=== PATIENT | male | born 1970 | race Caucasian/White ===

== ENCOUNTER → 2018-08-25 | Outpatient (CLI) | payer BC ==
--- NOTE | 2018-08-26 15:16 | MR ---
EXAMINATION TYPE: MR lumbar spine wo/w con DATE OF EXAM: 08/25/2018 COMPARISON: HISTORY: TECHNIQUE: Multiplanar, multisequence images of the lumbar spine were acquired utilizing mL intravenous gadolini um contrast. L1-L2: Normal disc appearance without desiccation. No herniation, protrusion or disc bulging. No ca nal stenosis is present. Foramina are patent bilaterally. L2-L3: Posterior broad-based disc bulge causes slight anterior mass effect on the thecal sac, no sign ificant spinal stenosis or foraminal encroachment. L3-L4: There is facet arthropathy change causing some posterior lateral mass effect on the thecal sac . Circumferential disc bulge causes slight anterior mass effect on the thecal sac, trefoil appearance of the thecal sac is present. L4-L5: No recurrent disc herniation. No significant foraminal encroachment or spinal stenosis. L5-S1: Circumferential extension of endplate disc complex encroaches somewhat on the left-sided ludmila en. No significant spinal stenosis. No disc herniation. Patient is status post posterior lumbar fusion L4-5, there is susceptibility artifact due to patient' s hardware. Loss of disc height signal is present L4-5, intervertebral spacing block is present, endp late discogenic marrow signal change. No paraspinal masses are identified. Conus medullaris has a no rmal appearance. No abnormal enhancement following contrast administration. IMPRESSION: Degenerative disc disease and facet arthropathy as described. Postop changes.
== END | disposition home or self-care (01) ==
LOC: RADMRIMAIN 17:03
PROVIDERS: ATTEND Nurse Practitioner
DX: M51.36 Other intervertebral disc degeneration, lumbar region (principal); M46.96 Unspecified inflammatory spondylopathy, lumbar region; Z98.1 Arthrodesis status
CPT/HCPCS: 72158; A9585

== ENCOUNTER → 2018-11-05 | Outpatient (CLI) | payer BC ==
--- NOTE | 2018-11-05 14:20 | MR ---
Thoracic spine MRI HISTORY: Pain Multiplanar multisequence imaging through the thoracic spine Correlation to plain films 09/27/2015 Thoracic vertebral bodies show preserved height, alignment, and bone marrow signal. There is mild spo ndylosis with minimal endplate discogenic marrow signal change at the lower thoracic spine. Disc spac es are maintained. There is no evident spinal stenosis, disc herniation, or significant foraminal enc roachment. Thoracic cord signal is maintained. Incidental note made of fat signal intensity focus wit hin the musculature of the upper left back measuring approximately 5.1 x 1.7 x 2.7 cm. There is some facet arthropathy changes noted at the lower thoracic spine. IMPRESSION: Facet arthropathy, mild thoracic spondylosis without evidence of disc herniation or spina l stenosis. Incidental lipoma noted in the upper left back.
== END | disposition home or self-care (01) ==
LOC: RADMRIMAIN 05:54
DX: M47.814 Spondylosis without myelopathy or radiculopathy, thoracic region (principal); M46.94 Unspecified inflammatory spondylopathy, thoracic region
CPT/HCPCS: 72146

== ENCOUNTER 2019-04-24 08:13 | Day surgery (SDC) | payer BC ==
[2019-04-22 14:59] VITALS: BMI 29.7
[~2019-04-24 08:13] MED LIST: LACTATED RINGERS 1,000 ML IV SCH
[2019-04-24 08:42] VITALS: TEMP 97.8
[2019-04-24] MEDS ORDERED: LIDOCAINE 1% 20 ML VIAL (10MG/ML) FOR IV START INTRADERMA ONE (08:45)
[2019-04-24] MEDS ORDERED: LIDOCAINE 1% INJ 10MG/ML (20 ML MDV) ONE (09:42)
[2019-04-24] MEDS ORDERED: PROPOFOL 10 MG/ML 20 ML VIAL IV ONE (09:42)
--- NOTE | 2019-04-24 10:00 | P.PCN ---
Date of Procedure: 04/24/19 Procedure(s) Performed: BRIEF HISTORY: Patient is a 48-year-old pleasant male scheduled for an elective colonoscopy as a part of screening for colorectal neoplasia. PROCEDURE PERFORMED: Colonoscopy with biopsy. PREOPERATIVE DIAGNOSIS: Screening for colon cancer. IV sedation per Anesthesia. PROCEDURE: After informed consent was obtained, the patient, was brought into the endoscopy unit. IV sedation was administered by Anesthesia under continuous monitoring. Digital rectal examination was normal. Initially the Olympus CF-160 flexible video colonoscope was then inserted in the rectum, gradually advanced into the cecum without any difficulty. Careful examination was performed as the scope was gradually being withdrawn. Ileocecal valve and the appendiceal orifice were visualized and appeared normal. Prep was excellent. In the base of the cecum there was a 2-3 mm small sessile polyp removed by cold biopsy Mucosa of the cecum, ascending colon, transverse colon, descending colon, sigmoid colon, and rectum appeared normal. In the rectum there was another 3 mm polyp removed by cold biopsy. Retroflexion was performed in the rectum and no lesions were seen. The patient tolerated the procedure well. IMPRESSION: 2-3 mm cecal polyp status post removal by cold biopsy 3 mm rectal polyp status post removal by cold biopsy RECOMMENDATIONS: Findings of this examination were discussed with the patient and family and his family. He was advised to follow with the biopsy results. If the biopsy shows an adenoma he can have a repeat colonoscopy in 5 years.
[2019-04-24 10:27] VITALS: BP 144/90; PULSE 77; RESP 18
== END 2019-04-24 10:34 | disposition home or self-care (01) ==
LOC: ORWHC2ENDO 08:13
PROVIDERS: ATTEND Internal Medicine Gastroenterology
DX: Z12.11 Encounter for screening for malignant neoplasm of colon (principal); K62.1 Rectal polyp; K63.5 Polyp of colon; I10 Essential (primary) hypertension; F41.9 Anxiety disorder, unspecified; Z98.1 Arthrodesis status; Z79.899 Other long term (current) drug therapy
CPT/HCPCS: 88305; 45380; J2001; J2704